=== PATIENT | male | born 1940 | race Hispanic/Latino ===

== ENCOUNTER 2017-02-21 12:42 | Inpatient (IN) | payer MEDICARE, BC ==
[2017-02-21 12:43] VITALS: BMI 27.3
[2017-02-21] MEDS ORDERED: Sodium Chloride 0.9% 1,000 ML IV STA (13:16)
[2017-02-21 13:24] LABS: BASO # 0.03 K/mm3 (0.0-2.0); BASO % 0.2 % (0.0-3.0); EOS # 0.1 (0.0-0.7); EOS % 0.5 % (1.5-5.0); GRAN # 9.56 (1.4-6.5); HEMOGLOBIN 11.4 gm/dL (14.0-18.0); LYMPH # 1.8 (1.2-3.4); LYMPH % 14.4 % (22.0-35.0); MEAN CELL VOLUME 92.6 fL (80.0-105.0); MEAN CORPUSCULAR HEMOGLOBIN 30.1 pg (25.0-35.0); MEAN CORPUSCULAR HGB CONC 32.5 g/dl (31.0-37.0); MEAN PLATELET VOLUME 10.9 fl (7.0-11.0); MONO # 0.7 (0.1-0.6); MONO % 5.9 % (1.0-6.0); PLATELET COUNT 210 10^3/uL (120.0-450.0); RBC 3.79 10^6/uL (3.5-6.1); RED CELL DISTRIBUTION WIDTH 14.9 % (11.5-14.5); WHITE BLOOD COUNT 12.1 10^3/ul (4.5-11.0)
--- NOTE | 2017-02-21 13:27 | ED PDOC ---
Arrival/HPI - General Chief Complaint: GI Problem Time Seen by Provider: 02/21/17 13:15 Historian: Patient - History of Present Illness Narrative History of Present Illness (Text): 02/21/17 13:15 A 76 year old male, whose past medical history includes CAD with stents, diabetes and on plavix, who presents to the emergency department complaining of coffee ground emesis and black diarrhea since this morning. Patient notes associated generalized weakness and chest discomfort. He denies any fever, or other complaints at this time. PMD: Dr. Mccarty Time/Duration: 1-3 hours Symptom Onset: Sudden Symptom Course: Unchanged Quality: Other Activities at Onset: Rest Modifying Factors (Text): none Context: Home Associated Symptoms (Text): generalized weakness and chest discomfort. 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) - Endocrine/Metabolic Hx Diabetes Mellitus Type 2: Yes - Hematological/Oncological Hx Blood Transfusions: No Hx Blood Transfusion Reaction: No - Musculoskeletal/Rheumatological Hx Musculoskeletal Disorders: Yes - Gastrointestinal Hx Gastrointestinal Disorders: Yes (Colon cancer) - Psychiatric Hx Emotional Abuse: No Hx Physical Abuse: No Hx Substance Use: No - Surgical History Hx Coronary Stent: Yes Other/Comment: abd sx "many years ago" - Anesthesia Hx Anesthesia Reactions: No Hx Malignant Hyperthermia: No - Suicidal Assessment Feels Threatened In Home Enviroment: No Family/Social History - Physician Review Nursing Documentation Reviewed: Yes Family/Social History: Unknown Family HX Smoking Status: Heavy Smoker > 10 Cigarettes Daily Hx Alcohol Use: No Hx Substance Use: No Allergies/Home Meds Allergies/Adverse Reactions: Allergies No Known Allergies Allergy (Verified 02/21/17 12:59) Home Medications: Home Meds Medication Instructions Recorded Confirmed Glimepiride [Amaryl] 4 mg PO BID 02/19/15 02/21/17 Clopidogrel [Plavix] 75 mg PO DAILY 02/20/15 02/21/17 Metoprolol Tartrate [Lopressor] 50 mg PO BID 02/20/15 02/21/17 Alprazolam [Xanax] 0.5 mg PO HS 07/04/16 02/21/17 Lisinopril [Zestril] 20 mg PO DAILY 07/04/16 02/21/17 MetFORMIN [glucoPHAGE] 1,000 mg PO BID 07/04/16 02/21/17 Cholecalciferol (Vitamin D3) 1,000 unit PO DAILY 02/21/17 02/21/17 [Vitamin D3] Clopidogrel [Plavix] 75 mg PO DAILY 02/21/17 02/21/17 Oxycodone HCl/Acetaminophen 1 each PO PRN PRN 02/21/17 02/21/17 [Percocet 10-325 mg Tablet] Psyllium Husk [Metamucil] 0 gm PO PRN PRN 02/21/17 02/21/17 Physical Exam - Physical Exam Narrative Physical Exam (Text): - Review of Systems Constitutional: Generalized weakness. absent: Weight Change, Fevers Eyes: Normal ENT: Normal Respiratory: Normal absent: SOB, Cough, Sputum Cardiovascular: Chest discomfort. absent: Palpitations, Syncope Gastrointestinal: Coffee ground emesis. Black diarrhea. absent: Abdominal pain, Nausea, Genitourinary: Normal. absent: Dysuria, Frequency, Hematuria Musculoskeletal: Normal. absent: Arthralgias, Back Pain, Neck Pain Skin: Normal Neurological: Normal absent: Focal Weakness Endocrine: Normal Hemo/Lymphatic: Normal Psychiatric: Normal - Physical exam Patient appears age appropriate, speaking full sentences without difficulty - Systems Exam Head: Present: Atraumatic, Normocephalic Pupils: Present: PERRL Extraocular Muscles: Present: EOMI Conjunctiva: Present: Normal Mouth: Present: Moist Mucous Membranes Neck: Present: Normal Range of Motion. No: MIDLINE TENDERNESS, Paraspinal Tenderness Respiratory/Chest: Present: Clear to Auscultation, Good Air Exchange. No: Respiratory Distress, Accessory Muscle Use, Tachypneic Cardiovascular: Present: Regular Rate and Rhythm, Normal S1, S2, Peripheral Pulses Present. No: Murmurs Abdomen: Present: Normal Bowel Sounds, No: Tenderness, Peritoneal Signs, Rebound, Guarding, Distention Back: Present: Normal Inspection. No: Midline Tenderness, Paraspinal Tenderness Upper Extremity: Present: Normal Inspection. No: Cyanosis, Edema Lower Extremity: Present: Normal Inspection. No: Edema Neurological: Present: GCS=15, Speech Normal, cranial nerves II through XII fully intact with no cerebellar abnormality, neuro-sensory fully intact. No focal neurological deficits. Skin: Present: Warm, Dry, Normal Color. No: Rashes Lymphatic: Present: OX3, NI, NC Psychiatric: Present: Alert, Oriented x 3, Normal Insight, Normal Concentration Vital Signs Reviewed: Yes Vital Signs Temp Pulse Resp BP Pulse Ox 02/21/17 12:48 97.6 F 87 16 107/63 95 Temperature: Afebrile Blood Pressure: Normal Pulse: Regular Respiratory Rate: Normal Appearance: Positive for: Well-Appearing, Non-Toxic, Comfortable Pain Distress: None Mental Status: Positive for: Alert and Oriented X 3 Medical Decision Making ED Course and Treatment: 02/21/17 13:15 Impression: A 76 year old male with coffee ground emesis and black diarrhea. Physical examination reveals no acute findings. Differential Diagnosis included but are not limited to: Upper GI Bleed vs. peptic ulcer disease vs. on demand ischemia Plan: -- EKG -- Chest X-ray -- Labs -- Protonix, Zofran and IV Fluids -- Reassess and disposition Progress Notes: EKG: Ordered, reviewed, and independently interpreted the EKG. Rate : 82 BPM Rhythm : NSR Interpretation : No ST-segment elevations, normal intervals. Interpreted by me. 02/21/17 13:57 Chest xray shows no cardiomegaly, no pneumothorax, no effusion, no infiltrates. 02/21/17 14:09 first Hb 12, BUN 50 pt currently hemodynamically stable, in no distress, denies any complaints at this time dw Dr. Jennings, accepted pt to his service, tele pt aware of and agrees with plan - Lab Interpretations Lab Results: 02/21/17 13:15 02/21/17 13:15 Lab Results 02/21/17 13:22: Blood Type Pending, Antibody Screen Pending, BBK History Checked No verified bt 02/21/17 13:15: TIBC 278 02/21/17 13:15: Sodium 138, Potassium 4.4, Chloride 102, Carbon Dioxide 26, Anion Gap 14, BUN 52 H, Creatinine 1.0, Est GFR ( Amer) > 60, Est GFR ( Non-Af Amer) > 60, Random Glucose 349 H* D, Calcium 8.0 L, Ferritin Pending, Total Bilirubin 0.6, AST 11 L, ALT 16, Alkaline Phosphatase 51, Lactate Dehydrogenase 223 L, Total Creatine Kinase 22 L, Troponin I < 0.01, Total Protein 5.2 L, Albumin 3.0, Globulin 2.2, Albumin/Globulin Ratio 1.4 02/21/17 13:15: PT 11.4, INR 1.06, APTT 22.9 L 02/21/17 13:15: WBC 12.1 H, RBC 3.79, Hgb 11.4 L, Hct 35.1 L, MCV 92.6, MCH 30.1 , MCHC 32.5, RDW 14.9 H, Plt Count 210, MPV 10.9, Gran % 79.0 H, Lymph % (Auto) 14.4 L, Gooding % (Auto) 5.9, Eos % (Auto) 0.5 L, Baso % (Auto) 0.2, Gran # 9.56 H , Lymph # 1.8, Gooding # 0.7 H, Eos # 0.1, Baso # 0.03 I have reviewed the lab results: Yes - RAD Interpretation Radiology Orders: 02/21/17 13:07 CHEST PORTABLE [RAD] Stat - Medication Orders Current Medication Orders: Sodium Chloride (Sodium Chloride 0.9%) 1,000 mls @ 999 mls/hr IV .Q1H1M STA Stop: 02/21/17 14:16 Last Admin: 02/21/17 13:28 Dose: 999 mls/hr Discontinued Medications Ondansetron HCl (Zofran Inj) 4 mg IVP STAT STA Stop: 02/21/17 13:08 Last Admin: 02/21/17 13:28 Dose: 4 mg Pantoprazole Sodium (Protonix Inj) 40 mg IVP STAT STA Stop: 02/21/17 13:08 Last Admin: 02/21/17 13:28 Dose: 40 mg - Scribe Statement The provider has reviewed the documentation as recorded by the HalleibGwendolyn Guaman Provider Scribe Attestation: All medical record entries made by the Scribe were at my direction and personally dictated by me. I have reviewed the chart and agree that the record accurately reflects my personal performance of the history, physical exam, medical decision making, and the department course for this patient. I have also personally directed, reviewed, and agree with the discharge instructions and disposition. Disposition/Present on Arrival - Present on Arrival Any Indicators Present on Arrival: No History of DVT/PE: No History of Uncontrolled Diabetes: No Urinary Catheter: No History of Decub. Ulcer: No History Surgical Site Infection Following: None - Disposition Have Diagnosis and Disposition been Completed?: Yes Diagnosis: GI bleed Disposition: HOSPITALIZED Disposition Time: 14:10 Patient Plan: Admission Condition: FAIR
[2017-02-21 13:29] LABS: ALB/GLOB RATIO 1.4 (1.1-1.8); ALT/SGPT 16 U/L (7-56); AST/SGOT 11 U/L (15-59); BLOOD UREA NITROGEN 52 mg/dL (7-21); GFR AFRICAN-AMERICAN > 60; GFR NON-AFRICAN AMERICAN > 60
[2017-02-21 13:42] LABS: INR 1.06 (0.93-1.08); PARTIAL THROMBOPLASTIN TIME 22.9 Seconds (23.7-30.8); PROTHROMBIN TIME 11.4 Seconds (9.9-11.8)
[2017-02-21 13:45] LABS: TROPONIN I < 0.01 ng/mL
[2017-02-21] MEDS: Insulin Reg-LOW-Coverage SC SCH ×2 (17:23→21:51)
--- NOTE | 2017-02-21 17:38 | RAD ---
HISTORY: cough COMPARISON: 02/19/2015 FINDINGS: LUNGS: No active pulmonary disease. PLEURA: No significant pleural effusion identified, no pneumothorax apparent. CARDIOVASCULAR: Normal. OSSEOUS STRUCTURES: Calcific tendinitis of right shoulder. VISUALIZED UPPER ABDOMEN: Normal. OTHER FINDINGS: None. IMPRESSION: No active disease.
[2017-02-22 07:49] LABS: HEMOGLOBIN 10.5 gm/dL (14.0-18.0); MEAN CELL VOLUME 90.6 fL (80.0-105.0); MEAN CORPUSCULAR HGB CONC 33.1 g/dl (31.0-37.0); MEAN PLATELET VOLUME 10.6 fl (7.0-11.0); RBC 3.5 10^6/uL (3.5-6.1); RED CELL DISTRIBUTION WIDTH 14.9 % (11.5-14.5); WHITE BLOOD COUNT 13.8 10^3/ul (4.5-11.0)
[2017-02-22 08:00] LABS: HDL CHOLESTEROL 33 mg/dL (29-60)
[2017-02-22 08:01] LABS: ALB/GLOB RATIO 1.4 (1.1-1.8); ALBUMIN 3.3 g/dL (3.0-4.8); ALT/SGPT 16 U/L (7-56); AST/SGOT 17 U/L (15-59); BLOOD UREA NITROGEN 49 mg/dL (7-21); CALCIUM 8.6 mg/dL (8.4-10.5); GFR AFRICAN-AMERICAN > 60; GFR NON-AFRICAN AMERICAN > 60
[2017-02-22 08:10] LABS: TROPONIN I 0.02 ng/mL
[2017-02-22 08:11] LABS: LDL CHOLESTEROL 58 mg/dL (0-129)
[2017-02-22] MEDS: Insulin Reg-LOW-Coverage SC SCH ×4 (08:45→22:06)
[2017-02-22] MEDS ORDERED: Propofol 10 mg/ml Inj (20 ML) ONE (09:16)
--- NOTE | 2017-02-22 09:23 | CP.PCM.CON ---
History of Present Illness - History of Present Illness History of Present Illness: Reason for Consult: Hx of CAD s/p PTCA 2014 admitted with GI Bleed 76 year old male with Hx of cad s/p PTCA02/23/2015 Mid to Distal RCA with NANCY, Hard of hearing, HTn , Hyperlidemia, Smoker admitted with with Hemoptysis and sandra , denies chest pain. PMHX. CAD as Above PTCA with NANCY in 02/23/2015 after February wk end with ACS at that time SHx Smoking positive , calims cut down, Socially drinks, No Hx of substance abuse. MES; ASA Plavix Metformin Metoprolo Lisinopril NKDA Past Patient History - Infectious Disease Hx of Infectious Diseases: None - Tetanus Immunizations Tetanus Immunization: Unknown - Past Social History Smoking Status: Heavy Smoker > 10 Cigarettes Daily - CARDIAC Hx Cardiac Disorders: Yes - NEUROLOGICAL Hx Paralysis: No - HEENT Hx HEENT Problems: Yes Hx Deafness: Yes (with right ear hearing aid) - ENDOCRINE/METABOLIC Hx Diabetes Mellitus Type 2: Yes - HEMATOLOGICAL/ONCOLOGICAL Hx Cancer: Yes (Colon Cancer) Hx Chemotherapy: Yes (1996) - MUSCULOSKELETAL/RHEUMATOLOGICAL Hx Arthritis: Yes (both knees) Hx Back Pain: Yes Hx Falls: No Hx Herniated Disk: Yes - GASTROINTESTINAL Hx Gastrointestinal Disorders: Yes (Colon cancer) - PSYCHIATRIC Hx Substance Use: No Other/Comment: Xanax 0.5 mg tab every bedtime "to make him sleep" - SURGICAL HISTORY Hx Surgeries: Yes (removal of mole) Hx Cardiac Catheterization: Yes Hx Coronary Stent: Yes - ANESTHESIA Hx Anesthesia Reactions: No Hx Malignant Hyperthermia: No Meds Allergies/Adverse Reactions: Allergies Allergy/AdvReac Type Severity Reaction Status Date / Time No Known Allergies Allergy Verified 02/21/17 12:59 - Medications Medications: Current Medications Insulin Human Regular (Humulin R Low) 0 units SC ACHS [facility] PRN Reason: Protocol Last Admin: 02/22/17 08:45 Dose: Not Given Lisinopril (Zestril) 20 mg PO DAILY [facility] Metoprolol Tartrate (Lopressor) 50 mg PO BID [facility] Last Admin: 02/21/17 17:23 Dose: 50 mg Ondansetron HCl (Zofran Inj) 4 mg IVP Q6H PRN PRN Reason: Nausea/Vomiting Pantoprazole Sodium (Protonix Inj) 40 mg IVP DAILY [facility] Results - Vital Signs Recent Vital Signs: Last Vital Signs Temp 98.5 F 02/22/17 06:00 Pulse 94 H 02/22/17 08:42 Resp 18 02/22/17 08:42 BP 152/62 H 02/22/17 08:42 Pulse Ox 97 02/22/17 08:42 - Labs Result Diagrams: 02/22/17 07:10 02/22/17 07:10 Labs: Laboratory Results - last 24 hr 02/21/17 02/21/17 02/22/17 15:58 21:03 07:10 WBC 13.8 H RBC 3.50 Hgb 10.5 L Hct 31.7 L MCV 90.6 MCH 30.0 MCHC 33.1 RDW 14.9 H Plt Count 201 MPV 10.6 Sodium Potassium Chloride Carbon Dioxide Anion Gap BUN Creatinine Est GFR ( Amer) Est GFR (Non-Af Amer) POC Glucose (mg/dL) 307 H 164 H Random Glucose Calcium Total Bilirubin AST ALT Alkaline Phosphatase Troponin I Total Protein Albumin Globulin Albumin/Globulin Ratio Triglycerides Cholesterol LDL Cholesterol Direct HDL Cholesterol TSH 3rd Generation 02/22/17 02/22/17 02/22/17 07:10 07:10 07:30 WBC RBC Hgb Hct MCV MCH MCHC RDW Plt Count MPV Sodium 141 Potassium 4.4 Chloride 107 Carbon Dioxide 28 Anion Gap 10 BUN 49 H Creatinine 0.8 Est GFR ( Amer) > 60 Est GFR (Non-Af Amer) > 60 POC Glucose (mg/dL) Random Glucose 131 H Calcium 8.6 Total Bilirubin 0.3 AST 17 ALT 16 Alkaline Phosphatase 54 Troponin I 0.02 D Total Protein 5.7 L Albumin 3.3 Globulin 2.4 Albumin/Globulin Ratio 1.4 Triglycerides 174 H Cholesterol 111 L LDL Cholesterol Direct 58 HDL Cholesterol 33 TSH 3rd Generation 0.20 L Assessment & Plan - Assessment and Plan (Free Text) Assessment: GI Bleed ( hemoptysis/ Sandra) Tenderness in epigastric area R/o PU Disease Hx of PTCA RCA ..two years ago, currently on ASA/ Plavix Plan: Hold ASA / Plavix Pt is ok to go for GI w/u EGD/ colonoscopy will foloow. thx. - Date & Time Date: 02/22/17 Time: 08:45
--- NOTE | 2017-02-22 10:24 | CARD ---
APPROVED REPORT EKG Measurement Heart [id number] <Conclusion> Normal sinus rhythm Incomplete right bundle branch block Prolonged QTc
[2017-02-22] MEDS: Sucralfate 1 gm/10 ml Oral Susp UD PO SCH ×3 (11:53→21:11)
[2017-02-22] MEDS: Sodium Chloride 0.9% 1,000 ML IV SCH ×2 (12:56→21:15)
[2017-02-22] MEDS ORDERED: Sodium Chloride 0.9% 1,000 ML IV SCH (22:03)
[2017-02-23 06:44] VITALS: O2SAT 95
[2017-02-23 07:26] LABS: HEMOGLOBIN 9.3 gm/dL (14.0-18.0); MEAN CELL VOLUME 91.3 fL (80.0-105.0); MEAN CORPUSCULAR HEMOGLOBIN 29.9 pg (25.0-35.0); MEAN CORPUSCULAR HGB CONC 32.7 g/dl (31.0-37.0); MEAN PLATELET VOLUME 10.5 fl (7.0-11.0); RBC 3.11 10^6/uL (3.5-6.1); RED CELL DISTRIBUTION WIDTH 15.1 % (11.5-14.5); WHITE BLOOD COUNT 9.9 10^3/ul (4.5-11.0)
[2017-02-23] MEDS: Insulin Reg-LOW-Coverage SC SCH ×2 (07:49→12:18)
[2017-02-23] MEDS: Sucralfate 1 gm/10 ml Oral Susp UD PO SCH ×2 (07:53→12:18)
--- NOTE | 2017-02-23 08:58 | CP.PCM.PN ---
Subjective - Date & Time of Evaluation Date of Evaluation: 02/23/17 Time of Evaluation: 07:15 - Subjective Subjective: Feels ok no chest pain, No vomiting 76 year old male with Hx of CAD , S/p PTCA >two years ago admitted with epigastric pain coffee ground vomitus and renae S/p EGD ...off plavix, no Chest pain. Objective - Vital Signs/Intake and Output Vital Signs (last 24 hours): Temp Pulse Resp BP Pulse Ox 98.4 F 70 20 118/50 L 95 02/23/17 06:00 02/23/17 06:00 02/23/17 06:00 02/23/17 06:00 02/23/17 06:00 Intake and Output: 02/23/17 02/23/17 06:59 18:59 Intake Total 300 Output Total 2 Balance 298 - Medications Medications: Current Medications Alprazolam (Xanax) 0.5 mg PO HS [facility] PRN Reason: Protocol Last Admin: 02/22/17 21:11 Dose: 0.5 mg Sodium Chloride (Sodium Chloride 0.9%) 1,000 mls @ 60 mls/hr IV .[id number] [facility] Insulin Human Regular (Humulin R Low) 0 units SC [facility] PRN Reason: Protocol Last Admin: 02/23/17 07:49 Dose: Not Given Lisinopril (Zestril) 20 mg PO DAILY [facility] Last Admin: 02/22/17 11:53 Dose: 20 mg Metoprolol Tartrate (Lopressor) 50 mg PO BID [facility] Last Admin: 02/22/17 17:46 Dose: 50 mg Ondansetron HCl (Zofran Inj) 4 mg IVP Q6H PRN PRN Reason: Nausea/Vomiting Pantoprazole Sodium (Protonix Inj) 40 mg IVP Q12 [facility] Last Admin: 02/22/17 21:11 Dose: 40 mg Sucralfate (Carafate Oral Susp) 1 gm PO ACHS [facility] Last Admin: 02/23/17 07:53 Dose: 1 gm - Labs Labs: 02/23/17 06:20 02/22/17 07:10 PT 11.4 Seconds (9.9-11.8) 02/21/17 13:15 INR 1.06 (0.93-1.08) 07/04/17 13:15 APTT 22.9 Seconds (23.7-30.8) L 02/21/17 13:15 Assessment and Plan - Assessment and Plan (Free Text) Assessment: Gi bleed S/p EGD Coffe ground vomitus and renae CAD S/p PTCA . two years asgo HTN Hyperlipidemia Plan: Keep off plavix Dc telemetry resume ASA (ecotrim 81 mg ) when ok from Gi point of view. will follow.
[2017-02-23 12:15] VITALS: BP 106/56; PULSE 56; RESP 16; TEMP 98.7
--- NOTE | 2017-02-28 09:52 | PQF GENQUE ---
02/28/17 Dr. Crook, Per electronic data processing auditor, there is conflicting documentation regarding this patient's gastric ulcer. Endoscopy report states non-bleeding ulcer(s), however progress notes state GI bleed due to large gastric ulcer. Please clarify whether the GI bleed is due to the gastric ulcer. Thank you. Clarification of your documentation is requested to better reflect the severity of illness and intensity of treatment of your patient. Indicators present [] Specify: [] [] Specify: [] [] Specify: [] [] Specify: [] Location in the medical record that reflects the above clinical findings: [] Treatment Provided: [] PHYSICIAN'S RESPONSE Based on your medical judgment of the clinical indicators outlined above please clarify the following: [] Practitioner response []x If unable to determine, please check the box, sign and date. Present On Admission (POA) Indicator: [] Present at the time of admission [] Not present at the time of admission [] Clinically Undetermined In responding to this query, please exercise your independent professional judgment. The fact that a question is asked does not imply that any particular answer is desired or expected. Thank you for your clarification on this documentation. If you have any questions please call:[ ] * Thank you, [ ] candy mixer RIGO
== END 2017-02-23 16:00 | disposition home or self-care (01) | DRG 379 ==
LOC: ED 12:42 → ERH 14:12 → 2RSO 15:52
PROVIDERS: ADMIT Internal Medicine; ATTEND Internal Medicine
PROC: 0DB68ZX Excision of Stomach, Via Natural or Artificial Opening Endoscopic, Diagnostic (ICD-10-PCS; 2017-02-22)
PROC: 0DB98ZX Excision of Duodenum, Via Natural or Artificial Opening Endoscopic, Diagnostic (ICD-10-PCS; principal; 2017-02-22 09:00)
DX: K92.2 Gastrointestinal hemorrhage, unspecified (principal); E11.9 Type 2 diabetes mellitus without complications; I10 Essential (primary) hypertension; B96.81 Helicobacter pylori [H. pylori] as the cause of diseases classified elsewhere; K25.9 Gastric ulcer, unspecified as acute or chronic, without hemorrhage or perforation; E78.5 Hyperlipidemia, unspecified; I25.10 Atherosclerotic heart disease of native coronary artery without angina pectoris; H91.91 Unspecified hearing loss, right ear; Z79.02 Long term (current) use of antithrombotics/antiplatelets; Z79.82 Long term (current) use of aspirin; Z79.899 Other long term (current) drug therapy; Z85.038 Personal history of other malignant neoplasm of large intestine; Z95.5 Presence of coronary angioplasty implant and graft; F17.210 Nicotine dependence, cigarettes, uncomplicated; R40.2412 Glasgow coma scale score 13-15, at arrival to emergency department; M17.0 Bilateral primary osteoarthritis of knee; M54.9 Dorsalgia, unspecified; K29.50 Unspecified chronic gastritis without bleeding; K26.9 Duodenal ulcer, unspecified as acute or chronic, without hemorrhage or perforation